=== PATIENT | male | born 1945 | race Caucasian/White ===

== ENCOUNTER 2017-03-06 09:42 | Day surgery (SDC) | payer MEDICARE ==
[~2017-03-06] VITALS: Ht 177.8 cm; Wt 139.0 kg
[~2017-03-06 09:42] MED LIST: 1-ME1LIQ PO; ALLO300T2 PO; ASPI81 PO; BETAM.05%T TOP; CARD240C6 PO; COLC1TAB7 PO; FURO1TAB93 PO; IPRA17I INH; KETO2%T TOP; LANTUS2P SC; LANTUSP SQ; LATA.005%O EACH EYE; LOSA50TA PO; MOTR200T PO; TAB-TAB PO; [UNRECOGNIZED DRUG - CODE] TOP
[2017-03-06] MEDS ORDERED: NS 1000P @30 MLS/HR (KVO) IV SCH (10:00)
[2017-03-06 10:19] VITALS: BP 159/65; PULSE 90; RESP 18; TEMP 98.9; O2SAT 98
[2017-03-06 10:24] LABS: AUTOMATED NEUTROPHIL # 7.8 TH/MM3 (1.8-7.7); BASOPHIL # 0.1 TH/MM3 (0-0.2); BASOPHIL % 1.1 % (0.0-2.0); EOSINOPHIL # 0.3 TH/MM3 (0-0.4); EOSINOPHIL % 2.9 % (0.0-4.0); HEMATOCRIT 36.8 % (39.0-51.0); HEMO FLAGS DIFF FINAL; LYMPH % 13.7 % (9.0-44.0); LYMPHOCYTE # 1.5 TH/MM3 (1.0-4.8); MEAN CELL VOLUME 84.4 FL (80.0-100.0); MEAN CORPUSCULAR HEMOGLOBIN 26.8 PG (27.0-34.0); MEAN CORPUSCULAR HGB CONC 31.7 % (32.0-36.0); MONO % 9.6 % (0.0-8.0); NEUT % 72.7 % (16.0-70.0); PLATELET COUNT 333 TH/MM3 (150-450); RED BLOOD COUNT 4.35 MIL/MM3 (4.50-5.90); RED CELL DISTRIBUTION WIDTH 16.5 % (11.6-17.2); WHITE BLOOD COUNT 10.7 TH/MM3 (4.0-11.0)
[2017-03-06] MEDS ORDERED: COLC1CAP3 PO (10:26)
[2017-03-06] MEDS ORDERED: IPRA17I INH (10:26)
[2017-03-06] MEDS ORDERED: LEVO75TA3 PO (10:26)
[2017-03-06] MEDS ORDERED: ASPI1TAB69 PO (10:26)
[2017-03-06] MEDS ORDERED: AMLO5 PO (10:26)
[2017-03-06] MEDS ORDERED: TELM1TAB2 PO (10:26)
[2017-03-06] MEDS ORDERED: DILT300C3 PO (10:26)
[2017-03-06] MEDS ORDERED: MULT-65 PO (10:26)
[2017-03-06] MEDS ORDERED: BETA0.052 TOPICAL (10:26)
[2017-03-06] MEDS ORDERED: LATA0.002 EACH EYE (10:26)
[2017-03-06] MEDS ORDERED: IBUP200C PO (10:26)
[2017-03-06] MEDS ORDERED: FURO20TA PO (10:26)
[2017-03-06] MEDS ORDERED: KETOC2%T TOPICAL (10:26)
[2017-03-06] MEDS ORDERED: POTA-243 PO (10:26)
[2017-03-06] MEDS ORDERED: LANTUS2P SQ (10:26)
[2017-03-06 10:37] LABS: APTT (PATIENT) 21.2 SEC (24.3-30.1); INTERNATIONAL NORMALIZED RATIO 0.9 RATIO
[2017-03-06 10:41] LABS: BICARBONATE 26.6 MEQ/L (21.0-32.0); POTASSIUM 4.3 MEQ/L (3.5-5.1)
[2017-03-06] MEDS ORDERED: HEPARIN-NS/PF INJ 500 ML ONE (12:38)
[2017-03-06] MEDS ORDERED: MIDAZOLAM HCL 2 MG/2 ML VIAL ONE ×2 (12:38→13:27)
--- NOTE | 2017-03-06 13:55 | CATHPROC ---
Patient Name: MAMIE GROSS Study #: [id number] Initial MD: Hali Melgoza Date of : 1945 Study Date: 03/06/2017 Cardiac Catheterization Report 03/06/2017 1:54:40 PM Financial #: [id number] 1 of 12 Patient Name: MAMIE GROSS Study #: [id number] Initial MD: Hali Melgoza Date of : 1945 Study Date: 03/06/2017 Entire Case Report Patient Information Patient Name MAMIE GROSS Date of 1945 Age 72 years Financial # [id number] Gender M AlternateID Lab Number 4 Accession # Room Number Height (in) 70.0 Height (cm) 177.8 BSA 2.50 Weight (lbs) 305.8 Weight (kg) 139.0 Patient Address/Phone Number Home Address [facility] Home Phone Number [address] [facility] [address] Study Information Study Number Admission Scheduled Start Study Start [id number] 03/06/2017 03/06/2017 Mar 06 2017 12:19PM Study Type [place] Service Left/Possible PCI Cardiac Catheterization Referring Institution Admit Source Facility Department 1 [facility] Desktop Engineer Physician and Clinical Staff Initial Hali Garrido Dental Assistant Israel ABLTAZAR, Tawny Goel RCIS TECH2 Recorder Johnny Gastelum,(R) ScrRichard Palacios RCIS(BS) Procedures Performed Procedure Location (Site) Vessel Name Coronary Angiograms LCA Left Coronary Coronary Angiograms RCA Right Coronary L Heart Cath LV Gram-hand inj. LV LV Ventricle 03/06/2017 1:54:40 PM Financial #: [id number] 2 of 12 Patient Name: MAMIE GROSS Study #: [id number] Initial MD: Hali Melgoza Date of : 1945 Study Date: 03/06/2017 Equipment Time Door Slinger Description Size Mfg Part Number Used/Scraped TRANSDUCER, TRUWAVE 12:45 LAMA HALLMAN * [id number] Used W/E[employer] and [employer] [id number]- INTRODUCER SET, 12:45 [employer] FR 5 SC-NT-U-SST Used MICROPUNCTURE, STIFFENED *[id number] 538-476 *[id number] 538-445 *[id number] [phone] *[id number] [phone] *[id number] 538-453S *[id number] 12:45 MEDLINE INDUSTRIES PACK, CCL CUSTOM * Used *[id number] 12:45 MEDLINE PACER PEN, SKIN DUAL W/ RULER * [id number] Used [id number] 12:45 [employer]Stream[employer]et MEDICAL WIRE, 3MMJ .035 180CM 180CM Used *[id number] 13:35 [employer] MEDICAL WIRE, EXCHANGE 260CM 3MMJ 260CM Used *[id number] PROBE COVER, STERILE 12:45 [employer] MEDICAL * [id number] Used ULTRASOUND W/ GEL [id number] 12:45 NAMIC MANIFOLD, 4 PORT * Used *[id number] 12:45 NYCOMED OMNIPAQUE, 350 MG, 150ML 150ML [id number] Used 13:30 NYCOMED OMNIPAQUE, 350 MG, 50ML 50ML [id number] Used [id number] 12:45 FELIX MEDICAL BLANKET,WARM AIR CCL * Used *[id number] 12:45 TERUMO MEDICAL SHEATH, FR4 TERUMO (10CM) FR 4 [id number] Used Insurance Information Insurance Payor Medicare, Private Health Insurance Third Republican Third Republican Number MEDICARE A B MCRAB 03/06/2017 1:54:40 PM Financial #: [id number] 3 of 12 Patient Name: MAMIE GROSS Study #: [id number] Initial MD: Hali Melgoza Date of : 1945 Study Date: 03/06/2017 History: Allergies Allergy Reaction Codeine Erythromycins ALLERGIC TO ALL MYCINS Metformin Niacin Penicillin Allopurinol Doxycycline HMG-CoA Reductase Inhibitors Losartan Rocephin Spironolactone benzapril History: Risk Factors Family History of Hypertension Dyslipidemia Previous MD Previous Heart Failure Premature CAD Yes Yes No No No Prior Valve Prior PCI Prior CABG Surgery No No No Cerebrovascular Peripheral Artery Chronic Lung On Dialysis Diabetes Diabetes Therapy Disease Disease Disease No No No No Yes Insulin History: Symptoms/Diagnosis Selection Items Chest pain 03/06/2017 1:54:40 PM Financial #: [id number] of 12 Patient Name: MAMIE GROSS Study #: [id number] Initial MD: Hali Melgoza Date of : 1945 Study Date: 03/06/2017 History: Stress Tests Stress or Imaging Studies Performed Yes Standard Exercise Stress Test No Stress Echo No Stress Test SPECT Stress Test SPECT Result Stress Test SPECT Ischemia Risk/Extent Yes Positive Intermediate Stress Test CMR No Cardiac CTA Coronary Calcium Score No No History: Other Disease Selection Items HTN History: Other Current Smoker Method Quit Packs a Day Years Used Pack Years No Cigarettes 30 Years Ago 2 20 40 Labs Hgb (g/dl) Hct (%) RBC (MIL/MM3) WBC (l/cumm) Platelets (thousands) 12.00-18.00 37.00-55.00 4.80-6.20 4.80-10.80 140.00-450.00 11.7 36.8 4.3 10.7 333 Glucose (mg/dl) BUN (mg/dl) Creatinine (mg/dl) BUN:Creatinine (1:x) 60.00-110.00 8.00-20.00 0.10-9.00 10.00-20.00 92 20 0.9 22.2 Na (meq/l) K (meq/l) Cl (meq/l) CO2 (mmol/L) Ca (mg/dl) 138.00-146.00 3.80-5.10 101.00-111.00 23.00-30.00 9.00-10.50 142 4.3 108 26.6 9.7 PT (sec) PTT (sec) INR (PTT:PT) 9.40-11.40 25.10-32.70 0.50-2.00 10 21.2 0.9 CPK-MB (ng/ML) 0.00-7.00 Not Drawn Medication 03/06/2017 1:54:40 PM Financial #: [id number] 5 of 12 Patient Name: MAMIE GROSS Study #: [id number] Initial MD: Hali Melgoza Date of : 1945 Study Date: 2016 Medication Total Dose (Bolus/Oral) Medication Total Dosage/Unit 1% XYLOCAINE 20 mL FENTANYL 50 mcg VERSED 3 mg Medications (Bolus/Oral) Medication Time Given Dosage/Unit Administered By Reason 1% XYLOCAINE 03/06/2017 1:16:47 PM 20 mL Hali Melgoza 20 mL 1% XYLOCAINE given in lab by Hali Melgoza in Right Groin via Subcutaneous. FENTANYL 03/06/2017 1:20:04 PM 50 mcg Israel BALTAZAR, Renato 50 mcg FENTANYL given in lab by Israel BALTAZAR, Renato in Left Antecubital via Peripheral IV. VERSED 03/06/2017 1:20:06 PM 2 mg Israel BALTAZAR, Renato 2 mg VERSED given in lab by Israel BALTAZAR, Renato in Left Antecubital via Peripheral IV. VERSED 03/06/2017 1:27:51 PM 1 mg Israel BALTAZAR, Renato 1 mg VERSED given in lab by Israel BALTAZAR, Renato in Left Antecubital via Peripheral IV. Medication (Drip) Medication Time Given Dosage/Unit Concentration/Unit Diluent (ml) Solutio n IV Solutions 03/06/2017 12:39:17 PM 0 mL (IV) 500 NaCl .9 IV Solutions given in lab by Israel BALTAZAR, Renato in Left Antecubital via Peripheral IV. Pump/Drip Flow = 20 ml/hr using NaCl .9. 03/06/2017 1:54:40 PM Financial #: [id number] 6 of 12 Patient Name: MAMIE GROSS Study #: [id number] Initial MD: Hali Melgoza Date of : 1945 Study Date: 03/06/2017 Initial Case Assessment Cardiovascular HR Rhythm NIBP Chest Pain 82 Sinus 159/76 0 Edema Present Skin color Skin None Normal Warm Dry Circulatory - Right Pulses Dorsalis Pedis Femoral 2 1 Scale (0,1,2,3,4,d) Circulatory - Left Pulses Dorsalis Pedis Femoral 2 1 Scale (0,1,2,3,4,d) Neurological State Oriented to time-place- Alert Moves all extremities person Respiration - General Respiration Rate SpO2 (%) O2 (lpm) (B/min) 10 97 0 03/06/2017 1:54:40 PM Financial #: [id number] 7 of 12 Patient Name: MAMIE GROSS Study #: [id number] Initial MD: Hali Melgoza Date of : 1945 Study Date: 03/06/2017 Final Case Assessment Cardiovascular HR Rhythm NIBP Chest Pain 78 Sinus 135/65 0 Edema Present Skin color Skin None Normal Warm Dry Circulatory - Right Pulses Dorsalis Pedis Femoral 2 1 Scale (0,1,2,3,4,d) Circulatory - Left Pulses Dorsalis Pedis Femoral 2 Scale (0,1,2,3,4,d) Neurological State Oriented to time-place- Alert Moves all extremities person Respiration - General Respiration Rate SpO2 (%) O2 (lpm) (B/min) 16 99 2 Vitals Summary Pain Time HR NIBP SpO2 Resp Temp EtCO2 Apnea Clotilde Vazquez Comment Level 12:41:00 79 159/76 97.0 16 10 0 2 12:45:14 85 124/97 95.0 27 10 0 2 12:50:58 83 162/85 96.0 8 10 0 2 12:55:29 76 149/80 96.0 12 10 0 2 13:00:58 79 152/86 97.0 11 10 0 2 13:05:31 75 158/71 94.0 12 10 0 2 13:10:28 78 153/85 95.0 15 10 0 2 13:15:29 81 155/77 89.0 14 10 0 2 13:20:30 77 149/83 97.0 15 10 0 2 13:25:29 75 152/79 98.0 17 10 0 2 13:30:32 82 152/75 98.0 15 10 0 2 13:35:31 78 124/78 98.0 16 10 0 2 13:40:30 78 135/65 98.0 21 10 0 2 13:46:06 151/82 99.0 10 0 2 03/06/2017 1:54:40 PM Financial #: [id number] Patient Name: MAMIE GROSS Study #: [id number] Initial MD: Hali Melgoza Date of : 1945 Study Date: 03/06/2017 Clotilde Score Summary Time Activity Resp Circ LOC Color Total Score 12:41:00 2 2 2 2 2 10 12:45:14 2 2 2 2 2 10 12:50:58 2 2 2 2 2 10 12:55:29 2 2 2 2 2 10 13:00:58 2 2 2 2 2 10 13:05:31 2 2 2 2 2 10 13:10:28 2 2 2 2 2 10 13:15:29 2 2 2 2 2 10 13:20:30 2 2 2 2 2 10 13:25:29 2 2 2 2 2 10 13:30:32 2 2 2 2 2 10 13:35:31 2 2 2 2 2 10 13:40:30 2 2 2 2 2 10 13:46:06 2 2 2 2 2 10 Clotilde Score Definition Table Activity - 0 Activity - 1 Activity - 2 No Movement to Command Weak Hand Grasp Lift Head, Good Hand Grasp Respiration - 0 Respiration - 1 Respiration - 2 Apneic or Obstructed Shallow Breath, Airway Adjunct Deep Breath, Cough Freely Circulation - 0 Circulation - 1 Circulation - 2 B/P > 50% Admission B/P B/P > 20-50% Admission B/P B/P Stable X3 Level of Consciousness - 0 Level of Consciousness - 1 Level of Consciousness - 2 Not Responding Arousable On Calling Awake and Aware Color - 0 Color- 1 Color - 2 Cyanotic Lips, Nailbed, Skin Pale, Dusky Eitzen Or Normal Chronological Log Time Study Chronological Log 12:30:41 Patient arrived via Bed. 12:30:42 Patient Name, D.O.B, / Armband Verified By R.N. 12:36:49 Consent signed by the physician and the patient and verified by the Desktop Engineer staff. 12:36:50 Pre-op and post- op instructions given; patient acknowledges understanding of instruction s. 12:36:56 Verbal Stimulation=2 Physical Stimulation=2 Airway=2 Respiration=2 TOTAL=8. (0=absent, 1= limited, 2=present) 12:37:57 Presedation assessment performed by Desktop Engineer RN. 12:38:39 Patient has been NPO for More than 6Hrs. 03/06/2017 1:54:40 PM Financial #: [id number] Patient Name: MAMIE GROSS Study #: [id number] Initial MD: Hali Melgoza Date of : 1945 Study Date: 03/06/2017 12:38:40 Skin Breakdown- none per patient. 12:38:52 Patient Warmer Placed on the Table. 12:38:54 Jayant Prominences Protected 12:38:56 A # 20 IV was noted in the Antecubital (left). Grade = 0 IV Solutions given in lab by Renato Wood RN in Left Antecubital via Peripheral IV. Pump/Drip F low = 20 ml/hr using NaCl 12:39:17 .9. 12:39:39 History and physical on the chart or being dictated. Assessment: Initial Case, HR=82 BPM, Rhythm=Sinus, JLJE=301/76 mmhg, Chest Pain=0, Edema=None, Color=Normal, Skin = Warm, Dry Right Pulses: Van Ped=2, Femoral=1 12:39:44 Left Pulses: Van Ped=2, Femoral=1 Neurological: State=Alert, Ox3, BENAVIDEZ Respiration: Resp=10 B/min, SpO2=97 %, O2=0 lpm Vitals capture started with the following parameters, Patient=Adult, Interval=15 min, Initial P fmhuqtl=336 mmHg, 12:39:47 Deflation Rate=5 mmHg 12:41:00 HR=79 bpm, BFKC=796/76 mmhg, SpO2=97.0 %, Resp=16 B/min, Pain=0, Clotilde=10, Vazquez=2 12:45:14 HR=85 bpm, CYZH=955/97 mmhg, SpO2=95.0 %, Resp=27 B/min, Pain=0, Clotilde=10, Vazquez=2 12:47:13 Right groin prepped with 2% chlorhexidine, and with a 3 min. waiting time. 12:47:42 MD paged 12:48:15 Pressure channel 1 zeroed. 12:50:58 HR=83 bpm, ZUQL=210/85 mmhg, SpO2=96.0 %, Resp=8 B/min, Pain=0, Clotilde=10, Vazquez=2 12:55:29 HR=76 bpm, TJMD=208/80 mmhg, SpO2=96.0 %, Resp=12 B/min, Pain=0, Clotilde=10, Vazquez=2 13:00:58 HR=79 bpm, KKNG=385/86 mmhg, SpO2=97.0 %, Resp=11 B/min, Pain=0, Clotilde=10, Vazquez=2 13:05:31 HR=75 bpm, VURX=801/71 mmhg, SpO2=94.0 %, Resp=12 B/min, Pain=0, Coltilde=10, Vazquez=2 13:10:28 HR=78 bpm, GXRI=036/85 mmhg, SpO2=95.0 %, Resp=15 B/min, Pain=0, Clotilde=10, Vazquez=2 13:11:08 MD arrived. 13:15:29 HR=81 bpm, DSHH=467/77 mmhg, SpO2=89.0 %, Resp=14 B/min, Pain=0, Clotilde=10, Vazquez=2 Time Out. Correct patient, correct procedure,correct physician, power injector not loaded with contrast with surgical 13:16:20 team present. Time Out Concurred by MD, individual staff in procedure 13:16:44 Case Start 13:16:47 20 mL 1% XYLOCAINE given in lab by Hali Melgoza in Right Groin via Subcutaneous. 13:16:56 Access site was Right Femoral Artery. Injector loaded by Renato Wood R.N. 13:17:30 13:18:42 Access site was Right Femoral Artery. 13:19:17 A SHEATH, FR4 TERUMO (10CM) FR 4 was advanced into the Fem Art (right) using the Percutaneo us technique. 13:20:04 50 mcg FENTANYL given in lab by Renato Wood RN in Left Antecubital via Peripheral IV. 13:20:06 2 mg VERSED given in lab by Renato Wood RN in Left Antecubital via Peripheral IV. 13:20:30 HR=77 bpm, TBFB=354/83 mmhg, SpO2=97.0 %, Resp=15 B/min, Pain=0, Clotilde=10, Vazquez=2 A JL 4.0 INFINITI CATHETER FR 4 was advanced over a wire. OMNIPAQUE, 350 MG, 150ML 150ML was us ed for 13:20:53 injections. Recorded Pressure: Ao, HR=76, Condition=Condition 1 13:21:12 (Aorta) Ao 131/63/92 13:21:43 Catheter was removed 03/06/2017 1:54:40 PM Financial #: [id number] Patient Name: MAMIE GROSS Study #: [id number] Initial MD: Hali Melgoza Date of : 1945 Study Date: 03/06/2017 A JL 5.0 INFINITI CATHETER FR 4 was advanced over a wire. OMNIPAQUE, 350 MG, 150ML 150ML was us ed for 13:23:15 injections. 13:24:35 The LCA was injected and visualized at various angles. OMNIPAQUE, 350 MG, 150ML 150ML used . 13:25:29 HR=75 bpm, CAAZ=061/79 mmhg, SpO2=98.0 %, Resp=17 B/min, Pain=0, Clotilde=10, Vazquez=2 13:26:06 Catheter was removed A 3DRC INFINITI CATHETER FR 4 was advanced over a wire. OMNIPAQUE, 350 MG, 150ML 150ML was used for 13:26:24 injections. 13:27:51 1 mg VERSED given in lab by Renato Wood RN in Left Antecubital via Peripheral IV. 13:28:15 The RCA was injected and visualized at various angles. OMNIPAQUE, 350 MG, 150ML 150ML used . 13:28:22 Catheter was removed A PIGTAIL ANG. INFINITI CATHETER FR 4 was advanced over a wire. OMNIPAQUE, 350 MG, 50ML 50ML wa s used for 13:29:09 injections. 13:30:32 HR=82 bpm, ZIDV=185/75 mmhg, SpO2=98.0 %, Resp=15 B/min, Pain=0, Clotilde=10, Vazquez=2 13:32:26 Catheter was removed A AL 1 INFINITI CATHETER FR 4 was advanced over a wire. OMNIPAQUE, 350 MG, 150ML 150ML was used for 13:33:27 injections. After removing the current catheter a PIGTAIL ANG. INFINITI CATHETER FR 4 was advanced over a W ТАТЬЯНА, EXCHANGE 13:35:26 260CM 3MMJ 260CM. 13:35:31 HR=78 bpm, WVHZ=172/78 mmhg, SpO2=98.0 %, Resp=16 B/min, Pain=0, Clotilde=10, Vazquez=2 13:37:48 Catheter was removed A AL 1 INFINITI CATHETER FR 4 was advanced over a wire. OMNIPAQUE, 350 MG, 150ML 150ML was used for 13:39:45 injections. 13:40:30 HR=78 bpm, RHPF=150/65 mmhg, SpO2=98.0 %, Resp=21 B/min, Pain=0, Clotilde=10, Vazquez=2 Recorded Pressure: LV, HR=76, Condition=Condition 1 13:40:52 (Left Ventricle) LV 127/6/13 13:41:22 The LV was manually injected with 6 cc's and visualized. OMNIPAQUE, 350 MG, 50ML 50ML used. Recorded Pressure: LV, Ao, HR=75, Condition=Condition 1 13:41:38 (Left Ventricle) LV 123/7/16, (Aorta) Ao 127/61/89 13:41:44 Catheter was removed 13:42:15 Case End Assessment: Final Case, HR=78 BPM, Rhythm=Sinus, HTFK=972/65 mmhg, Chest Pain=0, Edema=None, Color=Normal, Skin = Warm, Dry Right Pulses: Van Ped=2, Femoral=1 13:43:41 Left Pulses: Van Ped=2 Neurological: State=Alert, Ox3, BENAVIDEZ Respiration: Resp=16 B/min, SpO2=99 %, O2=2 lpm 13:44:53 Sterile dressing applied to site 13:44:55 No case complications noted. 13:44:56 Cine recording checked. 13:45:36 Bedside Report will be given. 13:45:44 A Left Heart Cath was performed. 13:46:06 BKJZ=013/82 mmhg, SpO2=99.0 %, Pain=0, Clotilde=10, Vzaquez=2 13:48:12 Patient moved to stretcher Recorded Pressures: Condition 1 03/06/2017 1:54:40 PM Financial #: [id number] Patient Name: MAMIE GROSS Study #: [id number] Initial MD: Hali Melgoza Date of : 1945 Study Date: 03/06/2017 Time Chamber Pressure Manual Override (*) 13:21:12 Ao 131/63/92 s/d/m 13:40:52 LV 127/6/13 s/bd/ed 13:41:38 LV 123/7/16 s/bd/ed 13:41:38 Ao 127/61/89 s/d/m Oxygen Values/Cardiac Output/Resistances: Condition 1 Oxygen Values O2 Consumption O2 Capacity 312.5 + 159.1 * = Manually Altered + = O2 Consumption is calculated using the formula 125 x BSA and should be considered a rough estimat e. End Study - Contrast Media Used In Study Contrast Total Opened (mL) Total Used (mL) Total Wasted (mL) Omnipaque 200 60 140 End Study - Maximum Contrast Load Max Contrast Load (mL) 772.2 End Study - Radiation Exposure Fluoro Time (minutes) 10.3 End Study - Patient Disposition Complications Transferred To Interventional Outcome No Outpatient Bed No attempt made 03/06/2017 1:54:40 PM Financial #: [id number]
[2017-03-06] MEDS ORDERED: IOHEXOL 350 MG/ML 100 ML BTL (for Cath Lab) OTHER ONE (14:30)
--- NOTE | 2017-03-06 14:37 | MA ---
cc: HALI MELGOZA M.D., LYLE E. MD DATE: 03/06/2017 INDICATION FOR CATHETERIZATION 1. Abnormal nuclear stress test. 2. Intermittent chest pain. 3. Prior history of mild coronary artery disease. CONSENT The risks of , bleeding, myocardial infarction, perforation, aspiration, foreseen and unforeseen complications were reviewed. The patient fully appeared to understand the risks. PROCEDURAL STATEMENT The patient was draped and prepped in the usual manner. The right femoral artery was entered using a micropuncture technique. Via 4-Nigerian sheath left and right coronary catheters were used to intubate the left and right coronaries. AL-1 catheter was used to intubate the left ventricle. Multiple angiographic views were carried out. At the end of the catheterization all catheters were removed. The sheath was left in place to be pulled in the holding area. FINDINGS HEMODYNAMICS Aortic pressure was 127/61 with a mean of 89. The left ventricular pressure was 133 with a left ventricular end-diastolic pressure of 16. There was no evidence of significant gradient on pullback of the LV outflow tract and aortic valve. LEFT VENTRICULOGRAM The overall left ventricular ejection fraction estimated at 60%. There was no evidence of significant mitral regurgitation or mural thrombus. CORONARIES Left main is large and free of significant disease. The left anterior descending artery is a large vessel. The first diagonal branch is medium. The circumflex vessel is a large vessel with a large first obtuse marginal branch. Second obtuse marginal branch is small, the third obtuse marginal branch is large and the fourth obtuse marginal branch which was really a posterior descending artery coming off the left system was large and also free of significant disease. The right coronary artery was a small dominant vessel. No significant stenosis noted. CONCLUSION Normal LV function. No significant coronary stenosis. Heavy calcification of the proximal LAD with a 25% proximal stenosis. PLAN Will plan to discharge the patient later today. Follow up in my office in due course. Follow up with Dr. Melgar. Hali Melgoza MD, FRCP,[facility] HAJ/TLL /1:52 PM /2:11 PM
--- NOTE | 2017-03-06 19:18 | EKG ---
Date Performed: 03/06/2017 Time Performed: 10:20:20 PTAGE: 72 years EKG: Sinus rhythm with 1st degree A-V block. Abnormal ECG PREVIOUS TRACING : 11/28/2010 16.33 Compared to prior tracing no significant change DOCTOR: Angel Linares Interpretating Date/Time 03/06/2017 19:17:31
--- NOTE | 2017-03-30 14:55 | MB ---
cc: DANIEL FLORES MD DATE OF CONSULTATION: 03/30/2017. REASON FOR CONSULTATION: HISTORY OF PRESENT ILLNESS: The patient is a 72-year-old man who presented on 03/25 with hypoxia and possible pneumonia. He was treated for baseline pneumonia with hypoxia as well as COPD and chronic bronchitis by Dr. Tello. The patient during his stay was noted to have a 20-beat run of ventricular tachycardia and cardiology was subsequently consulted. The patient denies any symptoms to me. He has remained stable and is requesting discharge home. PAST MEDICAL HISTORY: Past medical history significant for: 1. 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 He did subsequently undergo a Biotronik biventricular ICD implantation by Dr. Hager in 2014. The patient reports he has not seen Dr. Hager recently. 2. Allergic rhinitis. 3. Chronic pain. 4. Gastroesophageal reflux disease (GERD). PAST SURGICAL HISTORY: 1. The ICD. 2. Partial gastrectomy. 3. Left arm venous bypass. 4. Inguinal hernia repair. 5. Cardiac catheterization in October of 2013 shows no coronary artery disease. ALLERGIES: 1. BLACK PEPPER. 2. EGGS. 3. PEANUTS. CURRENT MEDICATIONS: 1. Carvedilol 6.25 milligrams twice a day. 2. Albuterol. 3. Heparin. 4. Levaquin. 5. Prednisone. 6. Amlodipine 5 milligrams a day. 7. Symbicort. SOCIAL HISTORY: The patient does no drink or smoke. FAMILY HISTORY Noncontributory. SOCIAL HISTORY The patient is a former smoker and he does have a glass of wine a day. PHYSICAL EXAMINATION: VITAL SIGNS: On physical examination, vital signs are 96.2, 80, 22, 150/83. GENERAL: In general, he is a thin elderly man who is in no apparent distress. He is coughing. NECK: The neck is free from jugular venous distention. LUNGS: The lungs are decreased but clear to auscultation. CARDIOVASCULAR: On cardiovascular examination, he has a normal S1 and S2. I do not appreciate any murmurs, rubs or gallops. ABDOMEN: The abdomen is soft. EXTREMITIES: Free from edema. ICD interrogation does reveal that the patient had a run of ventricular tachycardia on 03/28/2017 that was terminated by ATP. IMPRESSIONS: NSVT -- the patient does have a history of the same. His defibrillator was functioning properly and did successfully anti-tach pace him. He should continue on his Coreg. No further workup or change in therapy indicated at this time. DISPOSITION: It is reasonable for the patient to be discharged home. Rosey Aranda/DAVID /12:41 PM /2:43 PM
== END 2017-03-06 18:16 | disposition home or self-care (01) ==
LOC: HDOC 09:42 → HDIC 09:43 → HDOC 18:16
PROVIDERS: ATTEND Internal Medicine Cardiovascular Disease
DX: I25.10 Atherosclerotic heart disease of native coronary artery without angina pectoris (principal); I25.84 Coronary atherosclerosis due to calcified coronary lesion; I10 Essential (primary) hypertension; E11.9 Type 2 diabetes mellitus without complications; Z68.41 Body mass index [BMI] 40.0-44.9, adult; E66.01 Morbid (severe) obesity due to excess calories; Z88.1 Allergy status to other antibiotic agents; Z88.5 Allergy status to narcotic agent; Z88.0 Allergy status to penicillin; Z88.8 Allergy status to other drugs, medicaments and biological substances; Z79.82 Long term (current) use of aspirin; Z79.4 Long term (current) use of insulin
CPT/HCPCS: 80048; 82948; 85025; 85610; 85730; 93005; 93458; C1769; C1893; J1644; J2250; J3010; Q9967

== ENCOUNTER → 2017-04-29 | Day surgery (SDC) | payer MEDICARE ==
[~2017-04-29] MED LIST changes: -1-ME1LIQ PO; -ALLO300T2 PO; +AMLO5 PO; +ASPI1TAB69 PO; -ASPI81 PO; +BETA0.052 TOPICAL; -BETAM.05%T TOP; -CARD240C6 PO; +COLC1CAP3 PO; -COLC1TAB7 PO; +DILT300C3 PO; -FURO1TAB93 PO; +FURO20TA PO; +IBUP200C PO; -KETO2%T TOP; +KETOC2%T TOPICAL; -LANTUS2P SC; +LANTUS2P SQ; -LANTUSP SQ; -LATA.005%O EACH EYE; +LATA0.002 EACH EYE; +LEVO75TA3 PO; +LIDOCAINE HCL 1% PF 30 ML VIAL INFIL ONE; -LOSA50TA PO; +MEPERIDINE HCL 25 MG/ML VIAL IV ONE; -MOTR200T PO; +MULT-65 PO; +POTA-243 PO; +PROPOFOL 200 MG/20 ML AMP IV ONE; +SODIUM CHLORIDE 0.9% 10 ML VIAL ONE; -TAB-TAB PO; +TELM1TAB2 PO; +TRIAMCINOLONE ACETONIDE 40 MG/ML VIAL NERV BLOCK ONE; -[UNRECOGNIZED DRUG - CODE] TOP
--- NOTE | 2017-04-29 08:09 | M6 ---
cc: JONNA RUIZ M.D. DATE 04/29/2017 DATE OF 1945 PROCEDURE Fluoroscopically guided C7-T1 translaminar epidural steroid injection. History and physical was completed and signed. Consent was signed. Procedure site was marked. Medications were listed and reconciled. Pain score was recorded. Allergies were noted. Time out was taken. Fluoroscopy time was recorded where applicable. Sedation was administered or directed by Dr. Ruiz. The patient was given oxygen. The patient was monitored by a registered nurse. Total procedure time was greater than 15 minutes. PROCEDURE NOTE IV was started. Blood pressure cuff, pulse oximeter and EKG were applied. The patient was placed in the prone position on a Leobardo table, sedated with small amounts of propofol titrated to effect. Vital signs were monitored and remained stable throughout the procedure. The cervical area was prepped with alcohol and 10% Betadine solution and draped with sterile drapes. Fluoroscopy was used to visualize the C7-T1 translaminar space. The skin was infiltrated with 1% Xylocaine using a 27-gauge needle. Then a 3-1/2-inch, 18-gauge Strickland needle was advanced using fluoroscopic guidance and the vjtd-va-eholiljfxn technique into the epidural space at C7-T1 slightly to the right of the midline. There was negative aspiration for blood or any other type of fluid and the patient was given 5 mL of normal saline, 60 mg of Kenalog. Following this the patient was taken to the recovery room with stable vital signs, neurologically intact. W. MD MICHELLE Peralta/KRYSTYNA /7:52 AM /8:10 AM
== END | disposition home or self-care (01) ==
LOC: PHSDC 06:33
PROVIDERS: ATTEND Pain Medicine Interventional Pain Medicine
DX: M54.2 Cervicalgia (principal)
CPT/HCPCS: 62321; 99152; J2175; J3301

== ENCOUNTER → 2017-05-29 | Day surgery (SDC) | payer MEDICARE ==
[~2017-05-29] MED LIST changes: -ASPI1TAB69 PO; +MAPA325T PO
--- NOTE | 2017-05-31 12:31 | M6 ---
cc: JONNA RUIZ M.D. DATE: 05/29/2017 DATE OF : 7 1945 PROCEDURE Fluoroscopically guided C7-T1 translaminar epidural steroid injection. History and physical was completed and signed. Consent was signed. Procedure site was marked. Medications were listed and reconciled. Pain score was recorded. Allergies were noted. Time out was taken. Fluoroscopy time was recorded where applicable. Sedation was administered or directed by Dr. Ruiz. The patient was given oxygen. The patient was monitored by a registered nurse. Total procedure time was greater than 15 minutes. IV was started, blood pressure cuff, pulse oximeter and EKG were applied. The patient was placed in the prone position on a Leobardo table sedated with small amounts of propofol titrated to effect. Vital signs were monitored and remained stable throughout the procedure cervical area was prepped with alcohol and 10% Betadine solution and draped with sterile drapes. Fluoroscopy was used to visualize the C7-T1 translaminar space. The skin was infiltrated with 1% Xylocaine using a 27 gauge needle then a 3-1/2-inch 18-gauge Strickland needle was advanced using fluoroscopic guidance and the [id number]-[id number] technique into the epidural space at C7-T1 slightly to the right of the midline. There was negative aspiration for blood or any other type of fluid and the patient was given 6 mL of normal saline 60 mg of Kenalog. Following the procedure the patient was taken to the recovery room with stable vital signs neurologically intact. WMD MICHELLE Gale/james /8:18 AM /12:23 PM
== END | disposition home or self-care (01) ==
LOC: PHSDC 06:31
PROVIDERS: ATTEND Pain Medicine Interventional Pain Medicine
DX: M54.12 Radiculopathy, cervical region (principal); M79.601 Pain in right arm
CPT/HCPCS: 62321; 99152; J2175; J3301